=== PATIENT | male | born 1980 | race Caucasian/White ===

== ENCOUNTER 2019-01-25 19:12 | Emergency (ER) | payer SELFPAY ==
[~2019-01-25] VITALS: Ht 165.1 cm; Wt 72.6 kg
[~2019-01-25 19:12] MED LIST: AMOX500 PO; AZIT250 PO; CEPH500 PO; DOXY100 PO; HYDACE5 PO; IBUP800 PO; LORA.5 PO; OXYC10TA19 PO; OXYC5 PO; PENVK500 PO; PROM25 PO; RXHYDACE PO; TRAM50 PO
[2019-01-25] MEDS ORDERED: Prednisone20 MG PO (19:51)
[2019-01-25] MEDS ORDERED: Augmentin 875-1 EACH PO (19:51)
== END 2019-01-25 20:00 | disposition home or self-care (01) ==
LOC: ER 19:12
DX: K02.9 Dental caries, unspecified (principal); F17.200 Nicotine dependence, unspecified, uncomplicated
CPT/HCPCS: 99282; A9270

== ENCOUNTER 2022-05-03 23:04 | Observation (INO) | payer OTHER ==
[~2022-05-03] VITALS: Ht 165.1 cm; Wt 73.1 kg
[~2022-05-03 23:04] MED LIST changes: +Augmentin 875-1 EACH PO; +Prednisone20 MG PO
[2022-05-04 00:11] LABS: Source, Urine Clean Catch
[2022-05-04 00:13] LABS: BASOPHILS ABSOLUTE AUTO 0.06 K/mm3 (0.00-0.23); BASOPHILS PERCENT AUTO 1 % (0-2); EOSINOPHILS ABSOLUTE AUTO 0.26 K/mm3 (0.00-0.68); EOSINOPHILS PERCENT AUTO 3 % (0-6); Hematocrit 44.9 % (37.0-53.0); Hemoglobin 15.6 g/dL (13.5-17.5); IMMATURE GRAN ABSOLUTE AUTO 0.02 K/mm3 (0.00-0.10); IMMATURE GRAN PERCENT AUTO 0 % (0-1); LYMPHOCYTES ABSOLUTE AUTO 3.27 K/mm3 (0.84-5.20); LYMPHOCYTES PERCENT AUTO 37 % (21-46); MONOCYTES PERCENT AUTO 8 % (4-13); Mean Corpuscular HGB 32.8 pg (26.0-34.0); Mean Corpuscular HGB Conc 34.7 g/dL (31.5-36.5); Mean Corpuscular Volume 95 fL (80-100); Mean Platelet Volume 10.5 fL (9.1-12.4); NEUTROPHILS ABSOLUTE AUTO 4.54 K/mm3 (1.96-9.15); NEUTROPHILS PERCENT AUTO 51 % (41-73); Platelet Count 315 K/mm3 (150-400); RDW Coefficient Variation 12.1 % (11.7-14.2); RDW Standard Deviation 42.3 fL (35.1-46.3); Red Blood Cell Count 4.75 M/mm3 (4.30-5.90); White Blood Cell Count 8.85 K/mm3 (4.00-11.30)
[2022-05-04 00:15] LABS: Bilirubin, Urine Neg (Neg); Blood, Urine Neg (Neg); Glucose Qualitative, Urine Neg (Neg); Ketones, Urine Neg (Neg); Leukocyte Esterase, Urine Neg (Neg); Nitrite, Urine Neg (Neg); Protein, Urine Neg (Neg); Specific Gravity, Urine 1.025 (1.003-1.022); Urobilinogen, Urine NORM (Normal)
[2022-05-04 00:30] LABS: Appearance, Urine Clear (Clear); Color, Urine Yellow (P-Yellow)
[2022-05-04 00:34] LABS: Albumin, Blood 3.8 g/dL (3.4-5.0); Bilirubin, Total 0.7 mg/dL (0.1-1.0); Bun/Creatinine Ratio 17.5 (12.0-20.0); Calcium, Blood 9.1 mg/dL (8.5-10.1); Creatinine, Blood 0.92 mg/dL (0.60-1.20); Globulin, Blood 3.8 g/dL (2.2-4.0); Potassium, Blood 3.9 mmol/L (3.5-5.5); Total Protein, Blood 7.6 g/dL (6.4-8.2)
[2022-05-04 00:49] LABS: Influenza A, PCR NEGATIVE (NEGATIVE); Influenza B, PCR NEGATIVE (NEGATIVE); Resp Syncytial Virus, PCR NEGATIVE (NEGATIVE); SARS-Cov-2 (COVID-19) PCR, MMC NEGATIVE (NEGATIVE)
[2022-05-04 01:35] LABS: U Amphetamine Screen DETECTED; U Barbituate Screen Not Detected; U Benzodiazapine Screen Not Detected; U Buprenorphine Screen Not Detected; U Cannabinoids Screen Not Detected; U Cocaine Screen Not Detected; U Methadone Screen Not Detected; U Methamphetamine Screen DETECTED; U Opiates Screen Not Detected; U Oxycodone Screen Not Detected; U Phencyclidine Screen Not Detected; U Propoxyphene Screen Not Detected
--- NOTE | 2022-05-04 06:02 | NUR ---
SUMMARY: PATIENT ADMITTED TO UNIT THIS MORNING FOR DYSPNEA AND SOB UPON EXHERTION. PATIENT STATES HE DOES NOT GO TO THE DOCTOR AND DOES HE TAKE ANY MEDS. PATIENT AOX4. VSS. PO LASIX GIVEN UPON ARRIVAL. PATIENT ABLE TO AMBULATE INDEPENDENTLY IN ROOM. CALL LIGHT IN REACH. BED IN LOWEST POSITION.
--- NOTE | 2022-05-04 09:45 | NUR ---
CALLED DR DWYER- PT BP 115/80 AND HE RECIEVED PO LASIX AT 0447 THIS MORNING. SPOKE TO ANDREW ZHENG TO ADMINISTER THIS 40MG IV DOSE OF LASIX. EXPLAINED TO THE PT HE NEEDS TO CALL FOR ASSISTANCE WITH AMBULATION FOR NOW, SET BED ALARM A REMINDER. THE PT IS USUALLY INDEPENDENT BUT FOR SAFETY STEPS ARE BEING TAKEN UNTIL WE KNOW HOW LASIX WILL AFFECT HIM. PT IS AGREEABLE
--- NOTE | 2022-05-04 10:40 | NUR ---
MARCIAL 4 NOTED PT HAS VISIBLE TREMMORS NOT PRESENT EARLIER IN THE MORNING. MILDLY SWEATY ON THE BACK OF THE NECK, VERY MILD HEADACHE WHEN ASKED. PT STILL ALERT AND CALLS APPROPRIATELY. WILL CTM.
--- NOTE | 2022-05-04 15:36 | NUR ---
Echocardiogram completed. Stat overread requested.
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
--- NOTE | 2022-05-04 19:47 | NUR ---
SHIFT SUMMARY- PT ALERT AND ORIENTED X4. CIWAS 2-4 TODAY. PT IS IN BED SLEEPING AT THE TIME OF SHIFT CHANGE. BEDSIDE REPORT COMPLETED WITH NIGHT RN. SHE IS AWARE OF THE PT EPISODE OF CHEST PAIN THIS EVENING AND THE NEW ORDER FOR BETA EDILMA TO START TONIGHT. POSSIBLE DC TOMORROW. PT IN BED, CALL LIGHT IN REACH NO S&S OF DISTRESS NOTED.
--- NOTE | 2022-05-05 04:32 | NUR ---
SUMMARY: NO ACUTE EVENTS OVERNIGHT. PATIENT AOX4. VSS. PATIENT ABLE TO AMBULATE INDEPENDENTLY IN ROOM. CALL LIGHT IN REACH. BED IN LOWEST POSITION. STARTED ON BETA EDILMA BEFORE BED. CIWA SCORE STABLE. CALL LIGHT IN REACH.
[2022-05-05 05:56] LABS: BASOPHILS ABSOLUTE AUTO 0.06 K/mm3 (0.00-0.23); BASOPHILS PERCENT AUTO 1 % (0-2); EOSINOPHILS ABSOLUTE AUTO 0.27 K/mm3 (0.00-0.68); EOSINOPHILS PERCENT AUTO 2 % (0-6); Hematocrit 49.6 % (37.0-53.0); Hemoglobin 17.4 g/dL (13.5-17.5); IMMATURE GRAN ABSOLUTE AUTO 0.03 K/mm3 (0.00-0.10); IMMATURE GRAN PERCENT AUTO 0 % (0-1); LYMPHOCYTES ABSOLUTE AUTO 3.66 K/mm3 (0.84-5.20); LYMPHOCYTES PERCENT AUTO 32 % (21-46); MONOCYTES PERCENT AUTO 11 % (4-13); Mean Corpuscular HGB 32.7 pg (26.0-34.0); Mean Corpuscular HGB Conc 35.1 g/dL (31.5-36.5); Mean Corpuscular Volume 93 fL (80-100); Mean Platelet Volume 11.1 fL (9.1-12.4); NEUTROPHILS ABSOLUTE AUTO 6.08 K/mm3 (1.96-9.15); NEUTROPHILS PERCENT AUTO 54 % (41-73); Platelet Count 331 K/mm3 (150-400); RDW Coefficient Variation 12.1 % (11.7-14.2); RDW Standard Deviation 41.7 fL (35.1-46.3); Red Blood Cell Count 5.32 M/mm3 (4.30-5.90)
[2022-05-05 06:25] LABS: Bun/Creatinine Ratio 26.3 (12.0-20.0); Calcium, Blood 9.2 mg/dL (8.5-10.1); Creatinine, Blood 0.88 mg/dL (0.60-1.20); Potassium, Blood 4.1 mmol/L (3.5-5.5)
[2022-05-05 07:10] LABS: HIV AB/P24 AG SCREEN Non Reactive (Non Reactive)
[2022-05-05 09:11] LABS: HCV AB <0.1 (0.0-0.9)
[2022-05-05] MEDS ORDERED: FOLI1 PO (09:30)
[2022-05-05] MEDS ORDERED: Lopressor 25 mg25 MG PO (09:30)
[2022-05-05] MEDS ORDERED: B-1100 M1 PO (09:31)
[2022-05-05] MEDS ORDERED: POTA8 PO (09:31)
[2022-05-05] MEDS ORDERED: FURO20 PO (09:31)
--- NOTE | 2022-05-05 11:50 | NUR ---
DISCHARGE NOTE- PT WAS CIVEN VERBAL AND WRITTEN DISCHARGE INSTRUCTIONS AND ACKNOWLEDGED UNDERSTANDING OF THEM. THE PT MEDS WERE FAXED TO [facility] PER HIS REQUEST. IV AND TELE DC'D PRIOR TO DISCHARGE. PT REFUSED WC AND ESCORT AND WALKED OUT OF THE UNIT WITH HIS FRIEND WHO WAS TRANSPORTING HIM HOME. NO S&S OF DISTRESS NOTED AT THE TIME OF DISCHARGE.
== END 2022-05-05 11:16 | disposition home or self-care (01) ==
LOC: ER 23:04 → MEDS 23:05
PROVIDERS: Emergency Medicine; Internal Medicine; Student in an Organized Health Care Education/Training Program; ADMIT Internal Medicine
DX: I50.31 Acute diastolic (congestive) heart failure (principal); I27.20 Pulmonary hypertension, unspecified; F19.10 Other psychoactive substance abuse, uncomplicated; R94.31 Abnormal electrocardiogram [ECG] [EKG]; F17.200 Nicotine dependence, unspecified, uncomplicated
CPT/HCPCS: 0241U; 36415; 71046; 80048; 80053; 81003; 83735; 83880; 84484; 85025; 85379; 86803; 87389; 93005; 93010; 93306; 94760; 96365; 96372; 96376; 99285-25; A9270; G0378; J1650; J1940; J3411

== ENCOUNTER → 2023-09-15 | Outpatient (CLI) | payer OTHER ==
[~2023-09-15] MED LIST changes: +ACET500 PO; +B-1100 M1 PO; +FOLI1 PO; +FURO20 PO; +JARDIANCE10 MG PO; +LASIX20 M2 PO; +Lopressor 25 mg25 MG PO; +METO25 PO; +NICO21TP TOP; +POTA8 PO
[2023-09-15 20:05] LABS: Albumin, Blood 3.8 g/dL (3.4-5.0); Albumin/Globulin Ratio 0.9 (0.8-1.8); Bilirubin, Total 1.5 mg/dL (0.1-1.0); Bun/Creatinine Ratio 15.5 (12.0-20.0); Calcium, Blood 9.3 mg/dL (8.5-10.1); Creatinine, Blood 1.16 mg/dL (0.60-1.20); Globulin, Blood 4.2 g/dL (2.2-4.0); Phosphorus, Blood 4.1 mg/dL (2.5-4.9); Potassium, Blood 4.5 mmol/L (3.5-5.5)
== END | disposition home or self-care (01) ==
LOC: LAB SHORT 18:11 → LAB 18:11
PROVIDERS: Family Medicine
DX: I50.31 Acute diastolic (congestive) heart failure (principal)
CPT/HCPCS: 80053; 83880; 84100

== ENCOUNTER → 2024-03-15 | Outpatient (CLI) | payer OTHER ==
[~2024-03-15] MED LIST changes: +DAPAGLIFLOZIN10 MG PO; +GABA300 PO; +MIRALAX17 GM PO; +SILD25T PO
[2024-03-15 19:58] LABS: BASOPHILS ABSOLUTE AUTO 0.05 K/mm3 (0.00-0.23); BASOPHILS PERCENT AUTO 1 % (0-2); EOSINOPHILS ABSOLUTE AUTO 0.09 K/mm3 (0.00-0.68); EOSINOPHILS PERCENT AUTO 2 % (0-6); Hematocrit 53.2 % (37.0-53.0); Hemoglobin 18.1 g/dL (13.5-17.5); IMMATURE GRAN ABSOLUTE AUTO 0.02 K/mm3 (0.00-0.10); IMMATURE GRAN PERCENT AUTO 0 % (0-1); LYMPHOCYTES ABSOLUTE AUTO 1.28 K/mm3 (0.84-5.20); LYMPHOCYTES PERCENT AUTO 23 % (21-46); MONOCYTES ABSOLUTE AUTO 0.69 K/mm3 (0.16-1.47); MONOCYTES PERCENT AUTO 12 % (4-13); Mean Corpuscular Volume 94 fL (80-100); Mean Platelet Volume 10.2 fL (9.1-12.4); NEUTROPHILS ABSOLUTE AUTO 3.52 K/mm3 (1.96-9.15); NEUTROPHILS PERCENT AUTO 62 % (41-73); Platelet Count 378 K/mm3 (150-400); RDW Standard Deviation 48.5 fL (35.1-46.3); Red Blood Cell Count 5.65 M/mm3 (4.30-5.90); White Blood Cell Count 5.65 K/mm3 (4.00-11.30)
[2024-03-15 20:20] LABS: Albumin, Blood 3.4 g/dL (3.4-5.0); Albumin/Globulin Ratio 0.7 (0.8-1.8); Alk Phos 305 U/L (50-136); Anion Gap 9 mmol/L (3-11); Aspartate Aminotrans (AST/SGOT 40 U/L (12-37); Blood Urea Nitrogen 22 mg/dL (8-24); CHOL/HDL RATIO 2.9; CO2, Blood 27 mmol/L (21-32); Calcium, Blood 9.6 mg/dL (8.5-10.1); Chloride, Blood 105 mmol/L (98-108); Cholesterol 166 mg/dL (50-200); Globulin, Blood 4.6 g/dL (2.2-4.0); Glomerular Filtration Rate 96 (60-); Glucose, Blood 121 mg/dL (70-99); HDL Cholesterol 57 mg/dL (>39); LDL/HDL RATIO 1.5; Low Density Lipoprotein Chol 88 mg/dL (0-110); Sodium, Blood 137 mmol/L (136-145); Triglycerides 104 mg/dL (30-160); Very Low Density Lipoprot Chol 20 mg/dL (6-32)
[2024-03-15 20:27] LABS: Alanine Aminotransfer (ALT/SGP 65 U/L (12-78)
== END | disposition home or self-care (01) ==
LOC: LAB 19:17 → LAB SHORT 19:17
PROVIDERS: Family Medicine
DX: J96.21 Acute and chronic respiratory failure with hypoxia (principal)
CPT/HCPCS: 80053; 80061; 83880; 85025

== ENCOUNTER 2024-04-18 19:35 | Emergency (ER) | payer OTHER ==
[~2024-04-18] VITALS: Wt 77.4 kg
[2024-04-18 19:55] LABS: BASOPHILS ABSOLUTE AUTO 0.06 K/mm3 (0.00-0.23); BASOPHILS PERCENT AUTO 1 % (0-2); EOSINOPHILS ABSOLUTE AUTO 0.38 K/mm3 (0.00-0.68); EOSINOPHILS PERCENT AUTO 4 % (0-6); Hematocrit 43.5 % (37.0-53.0); Hemoglobin 14.6 g/dL (13.5-17.5); IMMATURE GRAN ABSOLUTE AUTO 0.02 K/mm3 (0.00-0.10); IMMATURE GRAN PERCENT AUTO 0 % (0-1); LYMPHOCYTES ABSOLUTE AUTO 2.99 K/mm3 (0.84-5.20); LYMPHOCYTES PERCENT AUTO 33 % (21-46); MONOCYTES ABSOLUTE AUTO 1.28 K/mm3 (0.16-1.47); MONOCYTES PERCENT AUTO 14 % (4-13); Mean Corpuscular HGB 30.4 pg (26.0-34.0); Mean Corpuscular HGB Conc 33.6 g/dL (31.5-36.5); Mean Corpuscular Volume 91 fL (80-100); Mean Platelet Volume 10.2 fL (9.1-12.4); NEUTROPHILS ABSOLUTE AUTO 4.36 K/mm3 (1.96-9.15); NEUTROPHILS PERCENT AUTO 48 % (41-73); Platelet Count 236 K/mm3 (150-400); RDW Coefficient Variation 14.5 % (11.7-14.2); RDW Standard Deviation 48.2 fL (35.1-46.3); White Blood Cell Count 9.09 K/mm3 (4.00-11.30)
[2024-04-18 20:18] LABS: Albumin, Blood 3.8 g/dL (3.4-5.0); Bilirubin, Total 2.3 mg/dL (0.1-1.0); Bun/Creatinine Ratio 15.7 (12.0-20.0); Calcium, Blood 9.1 mg/dL (8.5-10.1); Creatinine, Blood 0.89 mg/dL (0.60-1.20); Globulin, Blood 3.8 g/dL (2.2-4.0); Potassium, Blood 3.9 mmol/L (3.5-5.5); Total Protein, Blood 7.6 g/dL (6.4-8.2)
[2024-04-18 20:58] LABS: International Normalized Ratio 0.98; Prothrombin Time Results 10.5 Sec (9.7-11.5)
[2024-04-18] MEDS ORDERED: Tenecteplase 50 MG / Kit IV ONE (21:10)
[2024-04-18 21:30] VITALS: BP 108/76
== END 2024-04-18 21:45 | disposition short-term general hospital (02) ==
LOC: ER 19:35
PROVIDERS: Student in an Organized Health Care Education/Training Program
DX: I63.312 Cerebral infarction due to thrombosis of left middle cerebral artery (principal); R47.01 Aphasia; R29.704 NIHSS score 4; I50.9 Heart failure, unspecified; F17.210 Nicotine dependence, cigarettes, uncomplicated; Z79.899 Other long term (current) drug therapy; Z59.89 Other problems related to housing and economic circumstances
CPT/HCPCS: 70450; 70496; 70498; 80053; 80320; 84484; 85025; 85610; 85730; 93005; 93010; 96374-59; 99285-25; J3101; Q9967

== ENCOUNTER 2024-11-21 21:12 | Inpatient (IN) | payer OTHER ==
[~2024-11-21] VITALS: Ht 167.6 cm; Wt 73.7 kg
[2024-11-21 21:44] LABS: BASOPHILS ABSOLUTE AUTO 0.06 K/mm3 (0.00-0.23); BASOPHILS PERCENT AUTO 1 % (0-2); EOSINOPHILS ABSOLUTE AUTO 0.01 K/mm3 (0.00-0.68); EOSINOPHILS PERCENT AUTO 0 % (0-6); Hematocrit 48.8 % (37.0-53.0); Hemoglobin 16.9 g/dL (13.5-17.5); IMMATURE GRAN ABSOLUTE AUTO 0.05 K/mm3 (0.00-0.10); IMMATURE GRAN PERCENT AUTO 0 % (0-1); LYMPHOCYTES ABSOLUTE AUTO 1.51 K/mm3 (0.84-5.20); LYMPHOCYTES PERCENT AUTO 12 % (21-46); MONOCYTES ABSOLUTE AUTO 0.90 K/mm3 (0.16-1.47); MONOCYTES PERCENT AUTO 7 % (4-13); Mean Corpuscular HGB Conc 34.6 g/dL (31.5-36.5); Mean Corpuscular Volume 98 fL (80-100); NEUTROPHILS ABSOLUTE AUTO 9.87 K/mm3 (1.96-9.15); NEUTROPHILS PERCENT AUTO 80 % (41-73); NRBC ABSOLUTE 0.02 K/mm3 (0.00-0.02); NRBC Auto 0.2 /100 WBC (0.0-0.2); Platelet Count 202 K/mm3 (150-400); RDW Coefficient Variation 14.8 % (11.7-14.2); RDW Standard Deviation 53.7 fL (35.1-46.3)
[2024-11-21] MEDS ORDERED: Albuterol 2.5 MG/3 ML VIAL INH SCH (21:45)
[2024-11-21 21:56] LABS: pH Blood Venous 7.35 (7.34-7.37)
[2024-11-21 22:02] LABS: Alanine Aminotransfer (ALT/SGP 61.0 U/L (12-78); Albumin, Blood 4.2 g/dL (3.4-5.0); Albumin/Globulin Ratio 1.2 (0.8-1.8); Anion Gap 16.0 mmol/L (3-11); Aspartate Aminotrans (AST/SGOT 87.0 U/L (12-37); Bilirubin, Total 3.5 mg/dL (0.1-1.0); Blood Urea Nitrogen 30.0 mg/dL (8-24); CO2, Blood 18.0 mmol/L (21-32); Calcium, Blood 8.7 mg/dL (8.5-10.1); Chloride, Blood 108.0 mmol/L (98-108); Creatinine, Blood 1.65 mg/dL (0.60-1.20); Ethanol (Alcohol), Blood, Med 108.0 mg/dL; Globulin, Blood 3.5 g/dL (2.2-4.0); Glucose, Blood 97.0 mg/dL (70-99); Magnesium, Blood 2.4 mg/dL (1.6-2.4); Potassium, Blood 3.5 mmol/L (3.5-5.5); Sodium, Blood 138.0 mmol/L (136-145); Total Protein, Blood 7.7 g/dL (6.4-8.2)
[2024-11-22] VITALS (29 sets, daily range): BP systolic 92–140; BP diastolic 76–107
[2024-11-22] MEDS ORDERED: PNEUMOC 20-VAL CONJ-DIP CRM/PF 0.5 ML SYRINGE IM ONE (00:25)
[2024-11-22] MEDS ORDERED: Ipratropium/Albuterol SulF 2.5-0.5MG/3 ML Amp INH SCH ×2 (00:40→03:35)
[2024-11-22] MEDS ORDERED: Albuterol 2.5 MG/3 ML VIAL INH SCH (01:00)
[2024-11-22] MEDS ORDERED: NS 1,000 ML IV SCH (01:00)
[2024-11-22] MEDS ORDERED: CefTRIAXone Sodium 1,000 MG in NS 100 ML IV SCH (01:04)
[2024-11-22 01:24] LABS: BASOPHILS ABSOLUTE AUTO 0.05 K/mm3 (0.00-0.23); BASOPHILS PERCENT AUTO 1 % (0-2); EOSINOPHILS ABSOLUTE AUTO 0.00 K/mm3 (0.00-0.68); EOSINOPHILS PERCENT AUTO 0 % (0-6); Hematocrit 48.4 % (37.0-53.0); Hemoglobin 16.7 g/dL (13.5-17.5); IMMATURE GRAN ABSOLUTE AUTO 0.03 K/mm3 (0.00-0.10); IMMATURE GRAN PERCENT AUTO 0 % (0-1); LYMPHOCYTES ABSOLUTE AUTO 1.99 K/mm3 (0.84-5.20); LYMPHOCYTES PERCENT AUTO 21 % (21-46); MONOCYTES ABSOLUTE AUTO 0.88 K/mm3 (0.16-1.47); MONOCYTES PERCENT AUTO 9 % (4-13); Mean Corpuscular HGB Conc 34.5 g/dL (31.5-36.5); Mean Corpuscular Volume 97 fL (80-100); NEUTROPHILS ABSOLUTE AUTO 6.71 K/mm3 (1.96-9.15); NEUTROPHILS PERCENT AUTO 70 % (41-73); NRBC ABSOLUTE 0.00 K/mm3 (0.00-0.02); NRBC Auto 0.0 /100 WBC (0.0-0.2); Platelet Count 193 K/mm3 (150-400); RDW Coefficient Variation 14.9 % (11.7-14.2); RDW Standard Deviation 53.2 fL (35.1-46.3)
[2024-11-22 01:40] LABS: Source, Urine Voided
[2024-11-22 01:44] LABS: Prothrombin Time Results 12.2 Sec (9.7-11.5)
[2024-11-22 01:47] LABS: Alanine Aminotransfer (ALT/SGP 60.0 U/L (12-78); Albumin, Blood 4.2 g/dL (3.4-5.0); Albumin/Globulin Ratio 1.3 (0.8-1.8); Anion Gap 15.0 mmol/L (3-11); Aspartate Aminotrans (AST/SGOT 77.0 U/L (12-37); Bilirubin, Total 3.6 mg/dL (0.1-1.0); Blood Urea Nitrogen 29.0 mg/dL (8-24); CO2, Blood 18.0 mmol/L (21-32); Calcium, Blood 8.4 mg/dL (8.5-10.1); Chloride, Blood 110.0 mmol/L (98-108); Creatinine, Blood 1.43 mg/dL (0.60-1.20); Globulin, Blood 3.2 g/dL (2.2-4.0); Glucose, Blood 73.0 mg/dL (70-99); Potassium, Blood 3.8 mmol/L (3.5-5.5); Sodium, Blood 139.0 mmol/L (136-145); Total Protein, Blood 7.4 g/dL (6.4-8.2)
[2024-11-22 01:55] LABS: Bilirubin, Urine Neg (Neg); Glucose Qualitative, Urine 3+ (Neg); Ketones, Urine Neg (Neg); Leukocyte Esterase, Urine Neg (Neg); Protein, Urine 2+ (Neg); Specific Gravity, Urine 1.025 (1.003-1.022); Urobilinogen, Urine NORM (Normal)
[2024-11-22 02:01] LABS: Color, Urine Yellow (P-Yellow); Red Blood Cells, Urine Not Seen /hpf (0-2); White Blood Cells, Urine Not Seen /hpf (0-5)
[2024-11-22 03:14] LABS: Influenza A/2009-H1 Not Detected (NOT DETECT); SARS-Cov-2 (COVID-19), BioFire Not Detected (NOT DETECT)
[2024-11-22] MEDS ORDERED: Albuterol 2.5 MG/3 ML VIAL INH PRN (03:35)
--- NOTE | 2024-11-22 04:48 | NUR ---
SHIFT SUMMARY PT EASILY AROUSABLE TO VERBAL STIMULI. ORIENTED X3. PT ARRIVED TO UNIT ON 10L HIFL SATTING >90%. WAS ABLE TO TITRATE PT DOWN TO 6L HIFLOW >90%. OTHERWISE VSS. NO PAIN NOTED. ON TELE SINUS WITH BBB IN 90s. PT PRETTY SHAKY UPON ASSESSMENT. WHEN ASKED IF HE DRINKS DAILY HE REPORTED A PINT OF WHISKY A DAY. PT REPORTED HE DOES NOT USE ANY SUBSTANCES. VERY WEAK AND UNSTEADY ON FEET. BED ALARM ON. USING URINAL INDEPENDENTLY WITH GOOD OUTPUT. NO FURTHER QUETIONS OR CONCERNS AT THIS TIME. WILL CONTINUE WITH PLAN OF CARE. CALL LIGHT WITHIN REACH.
[2024-11-22] MEDS ORDERED: Enoxaparin 40 MG/0.4 ML SYR SC SCH (09:00)
[2024-11-22] MEDS ORDERED: Polyethylene Glycol 3350 17 gm PO PRN (09:50)
[2024-11-22] MEDS ORDERED: Multivitamins 1 Tab PO SCH (10:00)
[2024-11-22] MEDS ORDERED: Potassium Chloride 10 Meq Tablet SA PO SCH (10:00)
[2024-11-22 13:44] LABS: pH Blood Arterial 7.51 (7.35-7.45)
--- NOTE | 2024-11-22 13:45 | NUR ---
RAPID RESPONSE PATIENT UNABLE TO MAINTAIN SPO2 >90% ON 5-6 L, DENIES SOB; TACHYPNIC; RT AT BEDSIDE, INCREASED TO 10L, THEN PLACED ON AIRVO, RECOVERY SLOW WITH DESATURATION; LS MORE DIMINSIED THIS AFTERNOON THEN THIS AM ASSESSMENT, NO CHANGES TO RESP EFFORT. CHARGE AT BEDSIDE, LEFT MESSAGE FOR DR. JACK CALLED FOR SIGNIFICANT O2 NEED INCREASE. DR SHERIFF AT [facility], NEW ORDER FOR STAT ABG; RESULTS SHOWED TO DR CHARLES, PLANS FOR CONSULT PULMONOLOGY.
--- NOTE | 2024-11-22 15:23 | NUR ---
Pt. is awake in heis bed when he cautiously welcomed my visit. Pt. is guarded but pleasant. Facilitated a short update and this electric distribution checker communicated that I was present for the Pts. RR episode that happened earlier. Considered some matters of molina, but it was evidence that the Pt. wanted to watch TV. Pt. verbalized gratitude for the spiritual care visit.
--- NOTE | 2024-11-22 16:11 | NUR ---
TRANFER NOTE DR DE LEON AT BEDSIDE THIS AFTERNOON, PLANS FOR CT PE STUDY AND TRANSFER TO ICU AFTER. PATIENT PLACED ON NONREBREATHER AND TRANSPORTED WITH RN TO CT; THEN TRANSFERED PT TO ICU 12 WHEN FINISHED. REPORT GIVEN TO RIDDHI ISLAS ASUMING CARE OF PATIENT. TRANSFERED WITH ALL BELONGINGS.
--- NOTE | 2024-11-22 17:35 | NUR ---
TRANSFER TO ICU/SHIFT SUMMARY PT TRANSFER TO ICU APPROXIMATELY AT 1540. PT A&0 X4, ABLE TO MAKE NEEDS KNOWN AND IS AFEBRILE. PT IS ABLE TO MOVE EXTREMITIES EQUALLY AND BILATERALLY. CIWA SCORE OF 4. CONTINUOUS CARDIAC MONITORING IN PLACE SHOWING SINUS RHYTHM WITH A BBB. HR IN THE 80'S-90'S WITH MAP >65. PT IS ON AIRVO AT 50L AND 67% FIO2 WITH SP02 > 92%. PT USES URINAL INDEPENDENTLY. PIV IN PLACE TO RFA AND LAC, SL. BED IN LOWEST POSITION, CALL LIGHT IN REACH, CARE CONTINUES.
[2024-11-23] VITALS (25 sets, daily range): BP systolic 86–136; BP diastolic 62–119
[2024-11-23 03:58] LABS: Hematocrit 48.6 % (37.0-53.0); Hemoglobin 16.9 g/dL (13.5-17.5); Mean Corpuscular HGB Conc 34.8 g/dL (31.5-36.5); Mean Corpuscular Volume 96 fL (80-100); NRBC ABSOLUTE 0.03 K/mm3 (0.00-0.02); NRBC Auto 0.3 /100 WBC (0.0-0.2); Platelet Count 198 K/mm3 (150-400); RDW Coefficient Variation 14.7 % (11.7-14.2); RDW Standard Deviation 52.5 fL (35.1-46.3)
[2024-11-23 04:12] LABS: Prothrombin Time Results 11.9 Sec (9.7-11.5)
[2024-11-23 04:26] LABS: Alanine Aminotransfer (ALT/SGP 54.0 U/L (12-78); Albumin, Blood 3.6 g/dL (3.4-5.0); Albumin/Globulin Ratio 1.0 (0.8-1.8); Anion Gap 9.0 mmol/L (3-11); Aspartate Aminotrans (AST/SGOT 56.0 U/L (12-37); Bilirubin, Direct 0.5 mg/dL (0.0-0.3); Bilirubin, Indirect 2.9 mg/dL (0.1-0.7); Bilirubin, Total 3.4 mg/dL (0.1-1.0); Blood Urea Nitrogen 32.0 mg/dL (8-24); CO2, Blood 25.0 mmol/L (21-32); Calcium, Blood 8.5 mg/dL (8.5-10.1); Chloride, Blood 103.0 mmol/L (98-108); Creatinine, Blood 1.28 mg/dL (0.60-1.20); Globulin, Blood 3.6 g/dL (2.2-4.0); Glucose, Blood 111.0 mg/dL (70-99); Magnesium, Blood 2.2 mg/dL (1.6-2.4); Phosphorus, Blood 2.8 mg/dL (2.5-4.9); Potassium, Blood 3.7 mmol/L (3.5-5.5); Sodium, Blood 133.0 mmol/L (136-145); Total Protein, Blood 7.2 g/dL (6.4-8.2)
--- NOTE | 2024-11-23 07:23 | NUR ---
END OF WARPMAN SUMMARY: PATIENT ALERT AND ORIENT X4. CIWA HIGHEST 5 THIS AM. 1 DEGREE HB WITH RBBB HR 90S-LOW 100S. REPORTS NO CP OR DISCOMFORT. NO S/S OF DISTRESS. CONTINUES ON AIRVO AT 40L. TOLERATING AT THIS TIME AND TITRATING AT PATIENT TOLERATES TO MAINTAIN SAT >90. TURNS SELF IN BED. CONTINUES ON CARDIC DIET. URINAL TO URINTE THROUGHOUT SHIFT. SAFETY MAINTAINED AND PATIENT UPDATED ON CURRENT PLAN OF CARE.
--- NOTE | 2024-11-23 09:59 | NUR ---
ASSUMED CARE RECEIVED REPORT FROM JANEL PAYNE. PT IS RESTING COMFORTABLY IN BED, TOLERATING AIRVO ON 40L AT 49%. NO UNMET NEEDS EXPRESSED AT THIS TIME, MAY PLAN FOR CHANGE OF STATUS TODAY.
--- NOTE | 2024-11-23 16:45 | NUR ---
CALLED REPORT TO TODD ISLAS. TRANSPORTED VIA WHEELCHAIR ON 5L HFNC TO [facility] 11 AT 1640.
[2024-11-23] MEDS ORDERED: Vancomycin (Pharmacy Consult) IV PRN (17:45)
--- NOTE | 2024-11-23 18:07 | NUR ---
PATIENT TRANSFER TO PCU 11 AT 1640. ALERT AND ORIENTED. ARRIVES VIA WHEELCHAIR AND IS SBA TO BED. ABLE TO MAKE NEEDS KNOWN. MOVING ALL EXTREMITIES AND ABLE TO RESPOSITION SELF IN BED. DENIES RECLINER AT THIS TIME. VITALS STABLE. WEARING 5L NASAL CANNULA SATING 94%. DENIES SOB. STATES HE WEARS 4L AT HOME. EVEN AND UNLABORED RESPIRATIONS AT REST. TELE SHOWING SR WITH HR 90'S. DENIES CHEST PAIN/PRESSURE/PALPITATIONS. NO EDEMA NOTED. SCD'S IN PLACE. BOWEL TONES PRESENT. TOLERATING PO DIET. UP TO BATHROOM POST DINNER, BROWN FORMED BOWEL MOVEMENT. USING URINAL TO VOID. SKIN WITH SCATTERED BRUISING AND SCABS. IV SALINE LOCKED. BLOOD CULTURE RESULTS CALLED INTO DR. CHARLES. ORDERS FOR [facility] CONSULT. PATIENT LAYING IN BED AT THIS TIME WATCHING TV. CALL LIGHT IN REACH. BED ALARM IN PLACE. CIWA SCORING 1.
[2024-11-23] MEDS ORDERED: CefTRIAXone Sodium 1,000 MG in NS 100 ML IV SCH (21:00)
[2024-11-24 00:05] VITALS: BP 104/73
[2024-11-24 04:34] LABS: Hematocrit 48.7 % (37.0-53.0); Hemoglobin 17.0 g/dL (13.5-17.5); Mean Corpuscular HGB Conc 34.9 g/dL (31.5-36.5); Mean Corpuscular Volume 98 fL (80-100); NRBC ABSOLUTE 0.03 K/mm3 (0.00-0.02); NRBC Auto 0.3 /100 WBC (0.0-0.2); Platelet Count 192 K/mm3 (150-400); RDW Coefficient Variation 14.6 % (11.7-14.2); RDW Standard Deviation 52.4 fL (35.1-46.3)
[2024-11-24 04:35] VITALS: BP 97/75
[2024-11-24 04:53] LABS: Anion Gap 10.0 mmol/L (3-11); Blood Urea Nitrogen 27.0 mg/dL (8-24); CO2, Blood 22.0 mmol/L (21-32); Calcium, Blood 8.3 mg/dL (8.5-10.1); Chloride, Blood 104.0 mmol/L (98-108); Creatinine, Blood 1.07 mg/dL (0.60-1.20); Glucose, Blood 112.0 mg/dL (70-99); Magnesium, Blood 2.1 mg/dL (1.6-2.4); Potassium, Blood 4.1 mmol/L (3.5-5.5); Sodium, Blood 132.0 mmol/L (136-145)
--- NOTE | 2024-11-24 06:15 | NUR ---
PT'S SPO2 WAS MAINTAINING AT 87-88% ON 5-8L O2 VIA NASAL CANNULA. R.T. NOTIFIED. PT PLACED BACK ON AIRVO AT 40L/55% O2. PT ALERT AND ORIENTED X 4. PT SPO2 NOW 90-93% WHILE ON AIRVO. PT'S CIWA SCORE WAS 1 OVERNIGHT. PT USED URINAL APPROPRIATELY. BED LOCKED IN LOWEST POSITION. BED ALARM ON. CALL LIGHT WITHIN REACH.
[2024-11-24 07:41] VITALS: BP 125/82
--- NOTE | 2024-11-24 08:00 | NUR ---
ASSUMED CARE NOTE: ASSUMED CARE OF PT AT 0700, PT IS ALERT AND ORIENTED X 4, ABLE TO COMMUNICATE NEEDS. PT REMAINS ON AIRVO SETTING 45L, FiO2 55% , PT DENIES SHORTNESS OF BREATH. PT IN SR-ST WITH HR IN THE 90-100'S, BP STABLE. PT USING URINAL AT BEDSIDE INDEP. PT UP IN CHAIR FOR MEAL, ALARM SET.
[2024-11-24 12:00] VITALS: BP 115/82
[2024-11-24 16:11] VITALS: BP 126/77
--- NOTE | 2024-11-24 19:32 | NUR ---
SHIFT SUMMARY: PT IS ALERT AND ORIENTED X 4, ABLE TO FOLLOW COMMANDS AND COMMUNICATE NEEDS. PT MAX CIWA SCORE 2, DUE TO TREMORS AND HEADACHE. PT REMAINS IN ST WITH HR BETWEEN 100-110'S, BP STABLE, DENIES CHEST PAIN. PT ON AIRVO WITH SETTINGS 45L/54% FIO2, TACHYPENIC AT TIMES, HOWEVER, HE DENIES SOB. PT TOLERATING DIET, ACTIVE BT IN ALL QUADRANTS NO BM THIS SHIFT. PT USINING URINAL AT BEDSIDE IND. PT C/O R TOE PAIN, MD SAWNAAZENON AWARE. PT IS A STAND-PIVOT TO CHAIR, UNABLE TO BEAR WEIGHT ON RLE. PT ABLE TO REPOSITION SELF IN BED. PLAN OF CARE ONGOING.
[2024-11-24 20:10] VITALS: BP 102/77
--- NOTE | 2024-11-24 20:43 | NUR ---
DR. CONTRERAS NOTIFIED REGARDING CONCERN FOR ADMINISTRATIONOF BOTH METOPROLOL AND SILDENAFIL GIVEN PATIENT'S SBP TRENDING INTO THE 90'S ON PRIOR VITAL SIGNS. PATIENTS CURRENT BP IS 102/77 WITH HR AT 101 BPM. CLARIFIED WHETHER PARAMETERS SHOULD BE PLACED FOR ONE OR BOTH MEDICATIONS. ALSO INQUIRED ABOUT A NEED FOR FLUID RESTRICTION, PATIENT IS RECEIVING IV LASIX AND REPORTEDLY CONSUMES 4-5 CUPS (~450ML EACH) OF FLUIDS MULTIPLE TIMES THROUGHOUT THE DAY PER DAYSHIFT RN. ADDITIONALLY, REQUESTED PT/OT CONSULTS FOR MOBILITY, STRENGTHENING, AND CHF ENERGY CONSERVATION STRATEGIES. MD RESPONSE: - NO FLUID RESTRICTION ORDERS PLACED AT THIS TIME; DEFER DECISION TO DAYSHIFT TEAM. - NO PARAMETER ORDERS PLACED AT THIS TIME FOR METOPROLOL OR SILDENAFIL; IS SAFE TO ADMINISTER BOTH MEDICATIONS TONIGHT. - PT/OT CONSULTS APPROPRIATE AND ORDERED. BOTH MEDICATIONS GIVEN SINCE APPROVED FROM MD. PT/OT CONSULTS ARE ORDERED.
[2024-11-24] MEDS ORDERED: CefTRIAXone Sodium 1,000 MG in NS 100 ML IV ONE (20:55)
[2024-11-25 00:18] VITALS: BP 97/77
[2024-11-25 03:55] VITALS: BP 112/83
--- NOTE | 2024-11-25 04:18 | NUR ---
SHIFT SUMMARY: PATIENT HAS BEEN SLEEPING MAJORITY OF THE SHIFT, BUT IS EASILY AWOKEN WITH VERBAL STIMULI. WHEN AWAKE, PATIENT IS A&OX4. TELE SHOWS SINUS RHYTHM/TACH WITH HR BETWEEN 70'S-LOW 100'S BPM. PATIENT IS ON AIRVO WITH 45L AND 55% FIO2 WITH >90% SPO2. CIWA SCORES HAVE BEEN BETWEEN 0-2 THROUGHOUT SHIFT. PATIENT DENIES PAIN THROUGHOUT SHIFT. HE IS TOLERATING PO INTAKE, MAINLY PO LIQUIDS (SEE PREVIOUS NURSE NOTE), AND IS VOIDING VIA URINAL AT BEDSIDE. BED ALARM ON A PRECAUTION. PATIENT IS CURRENTLY LAYING IN BED WITH CALL LIGHT IN REACH. PATIENT HAS RECEIVED X2 IV ABX DURING THE NIGHT PER MAY. PATIENT REPOSITIONS HIMSELF IN BED.
[2024-11-25 07:34] LABS: Hematocrit 50.1 % (37.0-53.0); Hemoglobin 17.5 g/dL (13.5-17.5); Mean Corpuscular HGB Conc 34.9 g/dL (31.5-36.5); Mean Corpuscular Volume 96 fL (80-100); NRBC ABSOLUTE 0.02 K/mm3 (0.00-0.02); NRBC Auto 0.2 /100 WBC (0.0-0.2); Platelet Count 209 K/mm3 (150-400); RDW Coefficient Variation 14.2 % (11.7-14.2); RDW Standard Deviation 49.9 fL (35.1-46.3)
[2024-11-25 07:52] LABS: Alanine Aminotransfer (ALT/SGP 45.0 U/L (12-78); Albumin, Blood 3.3 g/dL (3.4-5.0); Albumin/Globulin Ratio 0.8 (0.8-1.8); Anion Gap 9.0 mmol/L (3-11); Aspartate Aminotrans (AST/SGOT 32.0 U/L (12-37); Bilirubin, Total 2.5 mg/dL (0.1-1.0); Blood Urea Nitrogen 25.0 mg/dL (8-24); CO2, Blood 22.0 mmol/L (21-32); Calcium, Blood 8.9 mg/dL (8.5-10.1); Chloride, Blood 106.0 mmol/L (98-108); Creatinine, Blood 0.91 mg/dL (0.60-1.20); Globulin, Blood 4.0 g/dL (2.2-4.0); Glucose, Blood 129.0 mg/dL (70-99); Potassium, Blood 4.3 mmol/L (3.5-5.5); Sodium, Blood 133.0 mmol/L (136-145); Total Protein, Blood 7.3 g/dL (6.4-8.2)
[2024-11-25 08:01] LABS: Vancomycin, Trough 29.3 ug/mL (5.0-10.0)
[2024-11-25 08:39] VITALS: BP 112/77
[2024-11-25 12:14] VITALS: BP 103/83
[2024-11-25 16:02] VITALS: BP 116/97
--- NOTE | 2024-11-25 18:00 | NUR ---
End of shift note. CIWA scoring was changed to PRN per protocol. Pt has been scoring less than 8 for greater than 72hours. PT worked with Pt this morning. Pt was OOB to the chair for breakfast. Pt is able to move well with SBA of staff. Some complaints of pain to right foot, which is baseline. Pt is limited by O2 cords. When moving, Pt desated to 85% but returned to >90% quickly after resting. Pt was able to take a shower this afternoon. After returning from the shower, Pt remained on the high flow nasal cannula at 10L. Pt reports that he much prefers to wear it compared to the Airvo. Pt has tolerated the transition well, RT is aware. Pt was downgraded to medical status with no tele. Pt is able to make needs known. Call light is within reach.
[2024-11-25 20:14] VITALS: BP 109/78
[2024-11-26 03:42] VITALS: BP 101/72
--- NOTE | 2024-11-26 05:35 | NUR ---
SHIFT SUMMARY PT IS A&O X 4, ABLE TO MAKE NEEDS KNOWN, MOVING ALL EXTREMITIES WITH PURPOSE, OBEYS COMMANDS, REPOSITIONING SELF IN BED, SBA TO BATHROOM. CONTINUOUS SPO2, SPO2 GREATER THAN 90% ON 10L O2 VIA NC, LUNGS SOUND DIMINISHED T/O, NO SIGNS OF RESPIRATORY DISTRESS NOTED. HR 100-110 S, PULSES PRESENT T/O, BP STABLE WITH MAP GREATER THAN 65. BOWEL TONES PRESENT IN ALL 4Q, PT DENIES FEELINGS OF NAUSEA OR CONSTIPATION OR PAIN. VOIDING IND USING URINAL, URINE YELLOW IN COLOR BED LOWEST POSITION, CALL LIGHT IN REACH, AWAITING TO GIVE REPORT TO ONCOMING RN.
[2024-11-26 08:03] VITALS: BP 117/85
--- NOTE | 2024-11-26 09:48 | NUR ---
ASSUMPTION OF CARE ASSUMED CARE OF PATIENT AT 0700. PATIENT AWAKE, ALERT AND ORIENTED X4. PATIENT IS ABLE TO OBEY COMMANDS AND MAKES NEEDS KNOWN. PATIENT WAS ON 10L O2 NC WITH SATS >90. HE WAS TITRATED DOWN TO 8L NC PER PROVIDER. HE DENIES SOB AND IS CONTINUING HIS BREATHING TREATMENTS. WILL CONTINUE TO CLOSELY MONITOR SATS. BED IN LOWEST POSITINO, CALL LIGHT IN REACH.
[2024-11-26 17:30] VITALS: BP 112/79
--- NOTE | 2024-11-26 18:15 | NUR ---
SHIFT SUMMARY PATIENT'S SATS HAVE BEEN >90 OVER SHIFT. TITRATED 02 DOWN TO 6L, PATIENT TOLERATED TITRATION WELL. PATIENT AMBULATES INDEPENDENTLY TO THE BATHROOM. PATIENT MAKES NEEDS KNOWN AND FOLLOWS DIRECTION. HE IS RESTING COMFORTABLY IN BED. PIV IS PATENT AND FLUSHES. CALL LIGHT IS WITH IN REACH. BED IS IN LOWEST POSITION.
[2024-11-26 19:50] VITALS: BP 101/82
[2024-11-26] MEDS ORDERED: NS 250 ML IV PRN (19:50)
[2024-11-27 03:04] VITALS: BP 116/71
[2024-11-27 03:43] LABS: Vancomycin, Trough 21.0 ug/mL (5.0-10.0)
[2024-11-27 04:41] LABS: Creatinine, Blood 0.97 mg/dL (0.60-1.20)
[2024-11-27 07:41] VITALS: BP 125/84
[2024-11-27 16:47] VITALS: BP 118/79
--- NOTE | 2024-11-27 17:54 | NUR ---
NO ACUTE CHANGES THIS SHIFT. PLAN TO D/C IN 1-2 DAYS PT SAT 90% ON 6L NC/ 4LNC AT BASELINE. INDEPENDENT IN ROOM, CALLS APPROPRIATELY. NO CONCERNS THIS SHIFT
[2024-11-27 19:27] VITALS: BP 119/86
[2024-11-28 04:50] VITALS: BP 117/87
--- NOTE | 2024-11-28 05:26 | NUR ---
SHIFT SUMMARY; PATIENT SLEPT IN LONG INTERVALS, HUNGRY WHEN AWAKE. REMAINS ON 6L/HFNC. PLEASANT TO WORK WITH.
--- NOTE | 2024-11-28 06:20 | NUR ---
LATE CHARTING, THIS IS A SHIFT SUMMARY FOR 11/27/24 0500. AFTER TRANSFER FROM PCU, PATIENT SLEPT THE REST OF THE SHIFT. INDEPENDENT TO BR. O2 6L/HFNC
[2024-11-28 06:23] LABS: Hematocrit 48.1 % (37.0-53.0); Hemoglobin 16.8 g/dL (13.5-17.5); Mean Corpuscular HGB Conc 34.9 g/dL (31.5-36.5); Mean Corpuscular Volume 97 fL (80-100); NRBC ABSOLUTE 0.00 K/mm3 (0.00-0.02); NRBC Auto 0.0 /100 WBC (0.0-0.2); Platelet Count 221 K/mm3 (150-400); RDW Coefficient Variation 14.2 % (11.7-14.2); RDW Standard Deviation 51.2 fL (35.1-46.3)
[2024-11-28 07:16] LABS: Albumin, Blood 3.2 g/dL (3.4-5.0); Anion Gap 10 mmol/L (3-11); Blood Urea Nitrogen 38 mg/dL (8-24); CO2, Blood 25 mmol/L (21-32); Calcium, Blood 8.7 mg/dL (8.5-10.1); Chloride, Blood 104 mmol/L (98-108); Creatinine, Blood 0.99 mg/dL (0.60-1.20); Glucose, Blood 92 mg/dL (70-99); Magnesium, Blood 2.2 mg/dL (1.6-2.4); Phosphorus, Blood 3.9 mg/dL (2.5-4.9); Potassium, Blood 3.8 mmol/L (3.5-5.5); Sodium, Blood 135 mmol/L (136-145); Vancomycin, Trough 5.2 ug/mL (5.0-10.0)
[2024-11-28 07:26] VITALS: BP 115/82
--- NOTE | 2024-11-28 10:17 | NUR ---
VERBAL ORDER FROM CALLED IN TO [facility]. PER DR. SANTOS, ORDER AMOXICILLIN 500 MG PO BID, QUANTITY 10.
--- NOTE | 2024-11-28 17:42 | NUR ---
Myles (pt) is awake and sitting on the edge of his bed. Pt has been in the hospital for a week and is unclear how he developed a blood infection. Pt laughs often and seems fairly easy going. Provided encouragment to pt before his expected discharge tomorrow. Pt thanked me for the visit.
--- NOTE | 2024-11-28 18:37 | NUR ---
PT DOING WELL. HOME O2 EVAL COMPLETE. PT ANTIBIOTICS FOR D/C PICKED UP FROM PHARMACY AND IS IN PT PERSONAL BELONGINGS. MD AND COMPUTER SUPPORT TECHNICIAN AWARE. INDEPENDENT WITH ADLS REQUIRING 6L NC CONTINUOUS O2. ABLE TO EXPRESS NEEDS
[2024-11-28 19:16] VITALS: BP 121/89
[2024-11-29 03:00] VITALS: BP 124/87
--- NOTE | 2024-11-29 03:06 | NUR ---
SHIFT SUMMARY NO ACUTE EVENTS DURING THIS SHIFT. O2 @5L VIA NC, CONT. PULSE OXIMETER O2 SAT'S MID 90'S. PT DENIES SOB, PAIN AND DISCOMFORT DURING THIS SHIFT. IV ABX INFUSED ORDERED. PT HAS HIS PO ABX IN HIS PERSONAL BELONINGS AND IS SCHEDULED TO D/C TODAY. PT REQUESTING TO STAY ANOTHER NIGHT, THAT IS NOT IN ANY HURRY TO D/C. CONTINUED PT EDUCATION. PT RESTING WELL W/O ANY ACUTE DISTRESS. VSS. HOME O2 EVAL COMPLETED. BED AT THE LOWEST POSITION, CALL LIGHT W/I REACH. PT IS ABLE TO MAKE HIS NEEDS KNOWN AND IS COOPERATIVE WITH CARE. GOOD APPETITE.
[2024-11-29 07:16] VITALS: BP 120/91
[2024-11-29 14:34] VITALS: BP 115/77
--- NOTE | 2024-11-29 15:00 | NUR ---
Patient discharged home independently. Patient medication prescriptions faxed to [facility] per patient preference. Belongings left in room; pillow with butterfly and phone payroll accounting manager/cord bagged and up at front [facility] desk. Patient packed all other belongings and walked to ER entrance independently after declining use of wheelchair. Education materials given to patient upon discharge.
--- NOTE | 2024-11-29 17:30 | NUR ---
End of shift summary: Patient is alert and oriented x4; pleasant and cooperative with care. Patient has been up ambulating in room and in halls today independently with O2 tank at 6L. Patient has denied CP/pressure, N/V/D or SOB except with moderate exertion. All medications administered per EMAR. Patient with no acute changes this shift. Patient utilizes call light appropriately; call light within reach, bed in lowest position. Will continue to monitor until next shift nurse arrives and report is given.
[2024-11-29 19:26] VITALS: BP 121/84
--- NOTE | 2024-11-30 03:01 | NUR ---
SHIFT SUMMARY NO ACUTE EVENTS DURING THIS SHIFT. PT MAINTAINING MID 90% ON 5L VIA NC. SNACKS AND DRINKS PROVIDED AT HS. PT DENIES PAIN AND DISCOMFORT, DENIES SOB AND CP/PRESSURE. IV ROCEPHIN INFUSED ORDERED. BED AT THE LOWEST POSITION, CALL LIGHT W/I REACH. PT RESTING WELL WITHOUT ACUTE DISTRESS DURING THE NIGHT HRS.
[2024-11-30 04:00] VITALS: BP 123/78
[2024-11-30 06:26] LABS: Anion Gap 9.0 mmol/L (3-11); Blood Urea Nitrogen 25.0 mg/dL (8-24); CO2, Blood 26.0 mmol/L (21-32); Calcium, Blood 8.9 mg/dL (8.5-10.1); Chloride, Blood 105.0 mmol/L (98-108); Creatinine, Blood 0.88 mg/dL (0.60-1.20); Glucose, Blood 107.0 mg/dL (70-99); Potassium, Blood 5.0 mmol/L (3.5-5.5); Sodium, Blood 135.0 mmol/L (136-145)
[2024-11-30 07:29] VITALS: BP 110/70
[2024-11-30 15:53] VITALS: BP 115/81
--- NOTE | 2024-11-30 19:45 | NUR ---
End of shift summary: Patient is alert and oriented x4; pleasant and cooperative with care. Patient is independent in room and chooses to take walks with his portable oxygen tank. Patient denies pain, CP, N/V/D but continues to have SOB with moderate exertion. Patient has decreased from 5L to 3L via NC today and maintaining O2 >92%. No acute changes this shift. All medications administered per EMAR. Patient utilizes call light appropriately; call light within reach and bed in lowest postion. Report given to overnight houseperson nurse.
[2024-11-30 19:58] VITALS: BP 112/91
--- NOTE | 2024-12-01 03:43 | NUR ---
SENIOR FINANCIAL REPORTING ACCOUNTANT SUMMARY PULSE RAPID (102), OTHERWISE VSS. O2 PER NC BETWEEN 3-4L/MIN FOR RESPIRATORY NEEDS. UP AD BENSON, BUT NOTE SOME RESP ISSUES WITH PHYSICAL EXERTION. REMAINS ON HEART HEALTHY DIET. TOLERATING MEDS WELL. HAS BEEN RESTING QUIETLY WITH OCCASIONAL INTERRUPTION. CALL LIGHT IN REACH, RAILS UP X 2 AND BED IN LOW POSITION FOR SAFETY. WILL CONTINUE TO MONITOR.
[2024-12-01 05:49] VITALS: BP 122/77
[2024-12-01 05:58] LABS: Anion Gap 10.0 mmol/L (3-11); Blood Urea Nitrogen 33.0 mg/dL (8-24); CO2, Blood 26.0 mmol/L (21-32); Calcium, Blood 8.8 mg/dL (8.5-10.1); Chloride, Blood 105.0 mmol/L (98-108); Creatinine, Blood 0.93 mg/dL (0.60-1.20); Glucose, Blood 93.0 mg/dL (70-99); Potassium, Blood 4.3 mmol/L (3.5-5.5); Sodium, Blood 137.0 mmol/L (136-145)
[2024-12-01 07:45] VITALS: BP 113/84
--- NOTE | 2024-12-01 10:06 | NUR ---
assumed care of pt is sleeping with o2 canula off nose, o2 sat 91 RA. canula replaced and now 96 on 3l. no c/o pain no distress, set up for shower, pt ind in rm.
[2024-12-01 15:40] VITALS: BP 116/86
--- NOTE | 2024-12-01 18:40 | NUR ---
PT DOING WELL, PT PLACED ON 5L NC O2 AT 90, NO C/O SOB. ENC PT TO LIMIT FLUIDS UNTIL O2 SAT INCREASES. EDU PT THAT FLUIDS MAY BE CONTRIBUTING TO HIS SOB AND TO PAY ATTENTION IF HE IS DISCHARGED TOMORROW . CALL LIGHT WITHIN REACH, MAKES NEEDS KNOWN.
[2024-12-01 19:40] VITALS: BP 122/86
[2024-12-02 03:29] VITALS: BP 101/76
--- NOTE | 2024-12-02 04:56 | NUR ---
MULTICRAFT OPERATOR SUMMARY PT A&OX4, VSS. PLEASANT AND COOPERATIVE WITH CARE. ABLE TO MAKE NEEDS KNOWN WELL. HAS BEEN ASLEEP FOR MOST OF THE SHIFT. CHEST RISE/RESPIRATIONS NOTED. PT VOICES SIGNIFICANT IMPROVEMENT IN WORK OF BREATHING. REMAINS ON 5L NC AND CONT PULSE OX. PT IS 4L NC AT BASELINE. BED RAILS UP X 2, BED IN LOWEST POSITION, BED WHEELS LOCKED, PERSONAL BELONGINGS AND CALL LIGHT WITHIN REACH FOR SAFETY.
[2024-12-02 06:01] LABS: Anion Gap 7.0 mmol/L (3-11); Blood Urea Nitrogen 32.0 mg/dL (8-24); CO2, Blood 27.0 mmol/L (21-32); Calcium, Blood 8.7 mg/dL (8.5-10.1); Chloride, Blood 107.0 mmol/L (98-108); Creatinine, Blood 0.93 mg/dL (0.60-1.20); Glucose, Blood 90.0 mg/dL (70-99); Potassium, Blood 4.1 mmol/L (3.5-5.5); Sodium, Blood 137.0 mmol/L (136-145)
[2024-12-02 07:39] VITALS: BP 97/70
[2024-12-02 09:11] VITALS: BP 116/87
[2024-12-02] MEDS ORDERED: FAMO20 PO (12:43)
[2024-12-02] MEDS ORDERED: MULVITA PO (12:44)
[2024-12-02] MEDS ORDERED: NICOTINE GUM2 M1 PO (12:46)
[2024-12-02] MEDS ORDERED: Prednisone20 MG PO (12:48)
[2024-12-02] MEDS ORDERED: VISBIOME 112.51 EACH PO (12:49)
[2024-12-02] MEDS ORDERED: AMOCLA875 PO (12:49)
[2024-12-02] MEDS ORDERED: FURO40 PO (13:03)
[2024-12-02 13:58] VITALS: BP 136/90
--- NOTE | 2024-12-02 16:03 | NUR ---
DISCHARGE SUMMARY PT A/Ox4 AND PLEASANT AND COOPERATIVE WITH CARE TODAY. PT WAS ASSESSED FOR HOME O2 NEEDS AND WAS SENT HOME ON 5L O2 NC. AN OXYGEN TANK WAS SENT HOME WITH THE PT. PT WAS EDUCATED ON F/U APPOINTMENTS ALONG WITH NEW MEDICATIONS. ESCORTED OUT OF THE [facility] ENTRANCE AT 1615 VIA W/C AND PICKED UP BY A [facility].
== END 2024-12-02 16:09 | disposition home or self-care (01) | DRG 314 ==
LOC: ER 21:12 → ERHOLD 23:48 → MEDS 23:48 → ICUE 23:48 → PCU 23:48 → ICUE 11-22 16:01 → PCU 11-23 16:04 → MEDS 11-27 00:43
PROVIDERS: Emergency Medicine; Internal Medicine; Internal Medicine Critical Care Medicine; Student in an Organized Health Care Education/Training Program; ADMIT Internal Medicine
PROC: 3E03329 Introduction of Other Anti-infective into Peripheral Vein, Percutaneous Approach (ICD-10-PCS; principal; 2024-11-22)
PROC: 5A0945A Assistance with Respiratory Ventilation, 24-96 Consecutive Hours, High Flow/Velocity Cannula (ICD-10-PCS; 2024-11-22)
DX: I27.20 Pulmonary hypertension, unspecified (principal); A40.9 Streptococcal sepsis, unspecified; J96.21 Acute and chronic respiratory failure with hypoxia; I50.32 Chronic diastolic (congestive) heart failure; N17.9 Acute kidney failure, unspecified; E87.1 Hypo-osmolality and hyponatremia; F10.230 Alcohol dependence with withdrawal, uncomplicated; Z99.81 Dependence on supplemental oxygen; I27.81 Cor pulmonale (chronic); I45.10 Unspecified right bundle-branch block; F17.210 Nicotine dependence, cigarettes, uncomplicated; F15.10 Other stimulant abuse, uncomplicated; F10.20 Alcohol dependence, uncomplicated; F41.9 Anxiety disorder, unspecified; I50.811 Acute right heart failure; I87.8 Other specified disorders of veins; M10.9 Gout, unspecified; K02.9 Dental caries, unspecified; Z79.84 Long term (current) use of oral hypoglycemic drugs; Z79.899 Other long term (current) drug therapy
CPT/HCPCS: 0202U; 36415; 36600; 71045; 71260; 80048; 80053; 80069; 80202; 80320; 81001; 82248; 82565; 82803; 83735; 83880; 84100; 84145; 84484; 85025; 85027; 85610; 86140; 87040; 87077; 87106; 87186; 93005; 93010; 93306; 94640; 94664; 94760; 94761; 94762; 97110; 97116; 97162; 97165; 97530; 97535; 99285-25; A9270; J0696; J1650; J1938; J3373; J7030; J7040; J7050; J7512; Q9967